=== PATIENT | female | born 1985 | race African-American/Black ===

== ENCOUNTER 2017-12-15 10:02 | Emergency (ER) | payer OTHER ==
[~2017-12-15] VITALS: Ht 165.1 cm; Wt 117.0 kg
[~2017-12-15 10:02] MED LIST: NAPR500T8 PO; OXYC-323 PO
[2017-12-15 10:32] VITALS: BP 153/85
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
[2017-12-15] MEDS ORDERED: CYCL5TAB PO (12:41)
[2017-12-15] MEDS ORDERED: HYDR-971 PO (12:41)
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
[2017-12-15] MEDS ORDERED: HYDROcodone/APAP 5/325MG 1 TAB TABLET PO ONE (12:45)
== END 2017-12-15 12:46 | disposition home or self-care (01) ==
LOC: ER 10:02
DX: M54.2 Cervicalgia (principal); G89.11 Acute pain due to trauma; M25.511 Pain in right shoulder; M25.512 Pain in left shoulder; F41.0 Panic disorder [episodic paroxysmal anxiety]; V49.49XA Driver injured in collision with other motor vehicles in traffic accident, initial encounter; Y93.89 Activity, other specified; Y92.488 Other paved roadways as the place of occurrence of the external cause; Y99.8 Other external cause status
CPT/HCPCS: 72125; 99284-25